=== PATIENT | male | born 1990 | race American Indian/Alaskan Native ===

== ENCOUNTER 2019-05-11 14:06 | Emergency (ER) | payer SELFPAY ==
--- NOTE | 2019-05-11 14:33 | Emergency Department Report ---
Blank Doc - Documentation Documentation: 28-year-old male that presents with abdominal pain and n/v. This initial assessment/diagnostic orders/clinical plan/treatment(s) is/are subject to change based on patient's health status, clinical progression and re- assessment by fellow clinical providers in the ED. Further treatment and workup at subsequent clinical providers discretion. Patient/guardians urged not to elope from the ED as their condition may be serious if not clinically assessed and managed. Initial orders include: 1- Patient sent to [facility] for further evaluation and treatment 2- labs 3- UA
[2019-05-11 14:37] VITALS: BP 104/63
[2019-05-11 15:21] LABS: Bilirubin,Urine NEG (Negative); Blood,Urine NEG (Negative); Color,Urine Yellow (Yellow); Mucus,Urine FEW /HPF; Protein,Urine <15 mg/dL mg/dL (Negative); Urobilinogen,Urine < 2.0 mg/dL (<2.0)
[2019-05-11 15:24] LABS: Basophils # (Auto) 0.1 K/mm3 (0.0-0.1); Basophils % (Auto) 0.5 % (0.0-1.8); Eosinophils # (Auto) 0.4 K/mm3 (0.0-0.4); Eosinophils % (Auto) 3.3 % (0.0-4.3); Hematocrit 44.8 % (35.5-45.6); Hemoglobin 14.9 gm/dl (11.8-15.2); Lymphocytes # (Auto) 1.9 K/mm3 (1.2-5.4); Lymphocytes % (Auto) 17.5 % (13.4-35.0); Mean Corpuscular HGB Conc 33 % (32-34); Mean Corpuscular Volume 89 fl (84-94); Monocytes # (Auto) 0.7 K/mm3 (0.0-0.8); Monocytes % (Auto) 6.8 % (0.0-7.3); Red Blood Count 5.02 M/mm3 (3.65-5.03); Red Cell Distribution Width 13.4 % (13.2-15.2)
[2019-05-11 15:44] LABS: Platelet Count 202 K/mm3 (140-440)
[2019-05-11 16:06] LABS: Alanine Aminotransferase 18 units/L (7-56); Albumin 4.5 g/dL (3.9-5); BUN/Creatinine Ratio 18; Blood Urea Nitrogen 14 mg/dL (9-20); Hemolysis Index 14
[2019-05-11] MEDS ORDERED: ZOFRAN ODT PO ONE (16:06)
--- NOTE | 2019-05-11 16:06 | Emergency Department Report ---
Vomiting/Diarrhea - HPI Chief Complaint: Nausea/Vomiting/Diarrhea Stated Complaint: VOMITING/ABD PAIN Time Seen by Provider: 05/11/19 14:32 Duration: 1 Day Severity: mild Nausea/Vomiting Severity: Mild Diarrhea Severity: Mild Pain Location: Epigastric Pain Severity: Mild Symptoms: Yes Watery Diarrhea, Yes Able to Tolerate Fluids, No Bloody diarrhea, No Fever, No Recent Unusual Foods, No Recent Untreated Water, No Recent use of Antibiotics, No Family w/ Similar Symptoms, No Contacts w/ Similar Symptoms, No Rash, No Hematuria, No Recent URI Symptoms Other History: 28 YO MALE WITH 1 DAY HX OF N/V/D. NO FEVER OR CHILLS. PMH. NONE. PSH. BACK. RX. NONE ED Review of Systems ROS: Stated complaint: VOMITING/ABD PAIN Other details as noted in HPI Comment: All other systems reviewed and negative ED Past Medical Hx - Past Medical History Previous Medical History?: No - Surgical History Past Surgical History?: Yes Additional Surgical History: back surgery - Family History Family history: no significant - Social History Smoking Status: Never Smoker Substance Use Type: None - Medications Home Medications: Home Medications Medication Instructions Recorded Confirmed Last Taken Type Ondansetron [Zofran Odt] 4 mg PO Q8HR PRN #10 tab.rapdis 05/11/19 Unknown Rx Vomiting Diarrhea Exam - Exam General: Vital signs noted. No distress. Alert and acting appropriately. HEENT: Yes Moist Mucous Membranes, No Pharyngeal Erythema, No Pharyngeal Exudates, No Rhinorrhea Neck: No Adenopathy, No Rigidity Lungs: Yes Clear Lung Sounds, Yes Good Air Exchange, No Wheezes Abdomen: Tenderness: No, Peritoneal Signs: No, Distention: No, Hyperactive Bowel sounds: No Skin exam: Rash: No Neurologic: Alert and oriented, no deficits. Musculoskeletal: Unremarkable. ED Course Vital Signs 05/11/19 14:32 Temperature 98 F Pulse Rate 78 Respiratory 18 Rate Blood Pressure 104/63 O2 Sat by Pulse 100 Oximetry ED Medical Decision Making - Lab Data Result diagrams: 05/11/19 14:52 05/11/19 14:52 - Medical Decision Making Labs 05/11/19 05/11/19 05/11/19 14:52 14:52 Unknown WBC 10.9 RBC 5.02 Hgb 14.9 Hct 44.8 MCV 89 MCH 30 MCHC 33 RDW 13.4 Plt Count 202 Lymph % (Auto) 17.5 [place] % (Auto) 6.8 Eos % (Auto) 3.3 Baso % (Auto) 0.5 Lymph # 1.9 [place] # 0.7 Eos # 0.4 Baso # 0.1 Seg Neutrophils % 71.9 H Seg Neutrophils # 7.8 H Sodium 139 Potassium 3.7 Chloride 99.8 Carbon Dioxide 26 Anion Gap 17 BUN 14 Creatinine 0.8 Estimated GFR > 60 BUN/Creatinine Ratio 18 Glucose 81 Calcium 9.0 Total Bilirubin 0.70 AST 24 ALT 18 Alkaline Phosphatase 59 Total Protein 8.2 Albumin 4.5 Albumin/Globulin Ratio 1.2 Lipase 24 Urine Color Yellow Urine Turbidity Clear Urine pH 7.0 Ur Specific [place] 1.019 Urine Protein <15 mg/dl Urine Glucose (UA) Neg Urine Ketones Neg Urine Blood Neg Urine Nitrite Neg Urine Bilirubin Neg Urine Urobilinogen < 2.0 Ur Leukocyte Esterase Neg Urine WBC (Auto) 1.0 Urine RBC (Auto) 1.0 Urine Mucus Few Vital Signs 05/11/19 14:32 Temperature 98 F Pulse Rate 78 Respiratory 18 Rate Blood Pressure 104/63 O2 Sat by Pulse 100 Oximetry LABS NOTED UA NOTED MEDICATED IN ER DC HOME WITH DC PLAN OF CARE AND PCP/GI FOLLOW UP AMBULATORY TAKING PO NON TOXIC - Differential Diagnosis GASTRITIS/GERD/GASTROENTERITIS Critical care attestation.: If time is entered above; I have spent that time in minutes in the direct care of this critically ill patient, excluding procedure time. ED Disposition Clinical Impression: Gastroenteritis Disposition: DC-01 TO HOME OR SELFCARE Is pt being admited?: No Does the pt Need Aspirin: No Condition: Stable Instructions: Gastroenteritis (ED) Additional Instructions: HYDRATE WELL WITH WATER MEDS ORDERED TODAY MOTRIN OR TYLENOL FOR PAIN OR FEVER FOLLOW UP WITH PCP THURSDAY TO BE SURE YOU ARE GETTING BETTER REFERRAL BELOW [facility] Prescriptions: Ondansetron [Zofran Odt] 4 mg PO Q8HR PRN #10 tab.rapdis PRN Reason: Vomiting Referrals: [facility] [Outside] - 3-5 Days Time of Disposition: 16:45
[2019-05-11] MEDS ORDERED: PROTONIX PO ONE (16:23)
== END 2019-05-11 17:35 | disposition home or self-care (01) ==
LOC: ED 14:06
DX: K52.9 Noninfective gastroenteritis and colitis, unspecified (principal); Z98.890 Other specified postprocedural states; Z79.899 Other long term (current) drug therapy
CPT/HCPCS: 36415; 80053; 81001; 83690; 85025; Q0162